=== PATIENT | female | born 1940 | race Caucasian/White ===

== ENCOUNTER 2017-01-23 14:22 | Emergency (ER) | payer OTHER ==
[~2017-01-23] VITALS: Ht 119.4 cm; Wt 53.9 kg
[~2017-01-23 14:22] MED LIST: ADVIL,NUPRIN,M200 MG PO; AMBIEN5 MG PO; AMITRIPTYLINE H10 MG PO; AMLODIPINE BESY10 MG PO; ASCORBIC ACID500 M3 PO; ATENOLOL PO; ATENOLOL100 MG PO; AZELASTINE137 MCG/0. BOTH NARES; Ambien PO; Ascorbic Acid,Ester- PO; BACLOFEN10 MG PO; BACTRIM,SEPT1 TABLET PO; BISAC-EVAC10 MG RC; Bactrim,Septra DS 80 PO; CO Q-1010 MG PO; Colace PO; DAZIDOX10 MG PO; Dulcolax PO; Dulcolax PR; Elavil PO; FIBER500 MG PO; FLEXERIL10 MG PO; FLEXERIL5 M1 PO; FLEXERIL5 MG PO; FOLIC ACID XTR0.8 MG PO; FOLIC ACID1 MG PO; FOLVITE1 M1 PO; Flora-Q,Risaquad PO; Folvite PO; GABAPENTIN300 MG PO; LAMICTAL150 M1 PO; LOVENOX40 MG/0.4 SC; LYRICA50 MG PO; MIRALAX17 GM PO; MULTIVITAMIN1 EAC2 PO; Milk Of Magnesia,MOM PO; Miralax, Glycolax PO; NEXIUM40 MG PO; NORVASC10 MG PO; Norvasc PO; OXYCODONE HCL10 M1 PO; OXYCODONE HCL10 MG PO; OxyCONTIN PO; PRILOSEC20 MG PO; PROTONIX40 MG PO; PROVENTIL,2.5 MG/3 M IH; Protonix PO; Questran PO; RANITIDINE HCL150 M1 PO; SENOKOT S,PE1 TABLET PO; SIMVASTATIN20 MG PO; STOOL SOFTENER100 MG PO; SYMBICORT60 INHALAT IH; TENORMIN100 M1 PO; THERAGRAN1 TABLET PO; TYLENOL ARTHRI650 M2 PO; Tylenol Regular Stre PO; VITAMIN B12 100MCG PO; Vancocin Oral Soluti PO; ZANAFLEX2 M1 PO; ZOCOR20 MG PO; Zocor PO; oxyCODONE PO
[2017-01-23 16:34] LABS: HEMATOCRIT 42.8 % (36.0-46.0); MCH 28.1 PG (29.0-34.0); MCHC 34.8 G/DL (30.0-36.0); MCV 80.8 FL (83-99); PLATELET COUNT 289 K/uL (156-360); RBC DIS.WIDTH-CV 13.3 % (11.8-14.6); WHITE BLOOD COUNT 8.5 K/uL (4.1-10.2)
[2017-01-23 16:42] LABS: CHLORIDE 108 mEq/L (99-109); POTASSIUM 3.8 mEq/L (3.7-5.4); SODIUM 140 mEq/L (136-147)
[2017-01-23 16:43] LABS: GLUCOSE 92 mg/dL (70-99)
[2017-01-23 16:45] LABS: ANION GAP 9 MEQ/L (2-14)
[2017-01-23 16:47] LABS: GFR ESTIMATE (CALCULATED) > 59 mL/min/
[2017-01-23 16:48] LABS: UREA NITROGEN (BUN) 16 mg/dL (9-23)
[2017-01-23 18:43] LABS: ADD MIUA? YES; BILIRUBIN NEGATIVE; BLOOD NEGATIVE; COLOR YELLOW ((YELLOW)); GLUCOSE (STRIP) NEGATIVE; KETONES NEGATIVE; LEUKOCYTES NEGATIVE; NITRITE NEGATIVE; PROTEIN (STRIP) NEGATIVE; SPECIFIC GRAVITY 1.013 (1.000-1.030); UROBILINOGEN 0.2 MG/DL (0.2-1.0)
[2017-01-23 19:07] LABS: AMORPHOUS URATES CRYSTALS 4+; BACTERIA 1+ /HPF; CRYSTALS PRESENT; EPITHELIAL CELLS RARE /HPF; MUCUS NONE SEEN /LPF; RED BLOOD CELLS 0-5 /HPF (0-5); UCUL ADDED? NO; WHITE BLOOD CELLS 0-5 /HPF (0-5)
[2017-01-23 20:56] VITALS: BP 148/67
== END 2017-01-23 20:59 | disposition home or self-care (01) ==
LOC: EME 14:22
PROVIDERS: Emergency Medicine
DX: R53.1 Weakness (principal); E86.0 Dehydration; I10 Essential (primary) hypertension; K21.9 Gastro-esophageal reflux disease without esophagitis
CPT/HCPCS: 80048; 81003; 85027; 99281; 99285; J7030

== ENCOUNTER 2017-06-24 11:44 | Emergency (ER) | payer OTHER ==
[~2017-06-24] VITALS: Ht 119.4 cm; Wt 56.7 kg
[2017-06-24 14:09] VITALS: BP 133/53
== END 2017-06-24 14:32 | disposition home or self-care (01) ==
LOC: EME 11:44
PROC: 0JQ00ZZ Repair Scalp Subcutaneous Tissue and Fascia, Open Approach (ICD-10-PCS; principal; 2017-06-24)
DX: S01.01XA Laceration without foreign body of scalp, initial encounter (principal); K21.9 Gastro-esophageal reflux disease without esophagitis; I10 Essential (primary) hypertension; G62.9 Polyneuropathy, unspecified; W07.XXXA Fall from chair, initial encounter; Z79.891 Long term (current) use of opiate analgesic; Z98.1 Arthrodesis status; Z88.8 Allergy status to other drugs, medicaments and biological substances
CPT/HCPCS: 70450; 99281; 99283